=== PATIENT | female | born 1950 | race Caucasian/White ===

== ENCOUNTER 2022-07-05 13:53 | Emergency (ER) | payer MEDICARE ==
[2022-07-05] MEDS ORDERED: Aspirin 81 MG Tab.Chew PO ONE (14:21)
[2022-07-05] MEDS ORDERED: Sodium Chloride 0.9% 10 ML Syringe FLUSH PRN (14:21)
[2022-07-05 15:17] LABS: ESTIMATED GFR 68 mL/min (>60)
== END 2022-07-05 16:13 | disposition home or self-care (01) ==
LOC: JD.ED 13:53
DX: R00.2 Palpitations (principal); R07.89 Other chest pain; I45.10 Unspecified right bundle-branch block; Z88.5 Allergy status to narcotic agent
CPT/HCPCS: 36415; 71045; 80053; 84443; 84484; 85025; 85379; 93005; 93225; 93226; 99285; A9270; J3490; 93010; 99283